=== PATIENT | male | born 1980 | race African-American/Black ===

== ENCOUNTER 2016-12-28 13:05 | Inpatient (IN) | payer OTHER ==
[~2016-12-28] VITALS: Ht 175.3 cm; Wt 76.7 kg
[2016-12-28] VITALS (11 sets, daily range): BP systolic 115–146; BP diastolic 62–89; PULSE 58–72; TEMP 36.3–36.9; O2SAT 100; Ht 175.3 cm; Wt 76.7 kg
--- NOTE | 2016-12-28 13:41 | Gastrointestinal Consultation ---
Gastrointestinal Consultation Date of Consultation: Dec 28, 2016 Attending Physician: Dr. Segovia Consulting Physician: Dr. Holder, Shelbie Hare PA-C Reason for Consultation: Symptomatic anemia, melena, change in bowel habits History of Present Illness Patient is a 36 yo male with PMH of asthma currently incarcerated at [facility] sent for evaluation of rectal bleeding, a large hemorrhoid & anemia. The patient was in good health in September 2016. He had routine labs performed at that time and his hemoglobin was 15.9. He reports that mid-October, he developed right sided abdominal cramping, constipation alternating with diarrhea , and most alarmingly to him was melanotic stool. He reports that prior to this , he had been having 1-2 soft, formed bowel movements daily. He had repeat labs performed again on 11/23/16 that indicated a significant drop in his hemoglobin to 8.4/32.6. He reports that his melena continued since that time. He reports right sided cramping persisted. On 12/03/16, his labs were repeated and his H/H was then 7.2/ 27.9. He reports he has continued to be weak and exhausted. He reports syncope. He reports shortness of breath with minimal exertion. He again reports persistence of melena. He denies nausea or vomiting. He reports a distant history of asthma for which he occasionally takes Ventolin. He reports his grandfather at a young age of colon cancer. He describes his abdominal pain as a sharp, cramping pain. Patient has a large external hemorrhoid as well, but has not been experiencing BRBPR. Past Medical/Surgical History Symptomatic Anemia Melena Change in bowel habits Past Medical History: Asthma Past Surgical History: Tubes in ears Family History Grandfather at young age from colon cancer Social History Smoking Status: Former Smoker Alcohol Use: none Drug Use: none Marital Status: single Housing Status: other (incarcerated) Review of Systems Constitutional: + fatigue, + weakness, + weight loss (5-10 pounds) Eyes: No problem reported Respiratory: + dyspnea on exertion, + shortness of breath Cardiac: + chest pain Abdomen: + GI bleeding (melena), + constipation, + diarrhea, + pain (right sided), No nausea, No vomiting Musculoskeletal: No joint pain Neuro: + problem reported (syncope) Psych: No problem reported Endo: + fatigue Skin: No problem reported Physical Exam General Appearance: WD/WN, no apparent distress Eyes: normal inspection, PERRL ENT: hearing grossly normal Respiratory/Chest: chest non-tender, lungs clear, + pertinent finding Cardiovascular: regular rate, rhythm Abdomen: normal bowel sounds, soft, + tenderness (right sided) Extremities: non-tender Neurologic/Psych: alert, oriented x 3 Skin: normal color Laboratory Results Last 24 Hours Test 12/28/16 13:11 Impression Patient is a 36 year old male with symptomatic profound anemia of 7.2/27.9, several weeks of melena, heme positive stools, and right sided abdominal pain. Possible GI bleeding, however regardless of GI bleeding patient requires further evaluation and treatment of symptomatic anemia. Plan 1) IV Protonix drip initiated. 2) NPO. 3) Obtain stat H/H. Pending result, will determine timing of endoscopic evaluation. If stable, would proceed with EGD this afternoon. If not, would recommend optimization with transfusion prior to any intervention. 4) Given change in bowel habits, right sided lower abdominal pain, and family history of colon cancer, patient will need a colonoscopy as well---timing to be determined. 5) Supportive care per primary team. Thank you for allowing us to participate in the care of this patient. If you should have any further questions or concerns, do not hesitate to contact us. Agree with NANCY Chacon as above Abd: Soft, RLQ abdominal tenderness, ND, +BS EGD today Continue PPI gtt at present
[2016-12-28] MEDS ORDERED: ONDANSETRON INJ 2 MG/ML 2 ML VIAL IV PRN (13:45)
[2016-12-28 13:55] LABS: HEMATOCRIT 27.6 % (42-52); MEAN CELL VOLUME 62.2 fL (80-100); MEAN CORPUSCULAR HEMOGLOBIN 16.7 pg (25-34); MEAN CORPUSCULAR HGB CONC 26.8 g/dl (32-36); RED BLOOD COUNT 4.44 M/uL (4.7-6.1); WHITE BLOOD COUNT 7.26 K/uL (4.8-10.8)
[2016-12-28 13:59] LABS: MEAN PLATELET VOLUME 10.4 fL (7.4-10.4); PLATELET COUNT 1041 K/uL (130-400)
[2016-12-28 14:00] LABS: ANISOCYTOSIS PRESENT; BASO % 2.9 %; BASO ABS # 0.21 K/uL (0-0.2); COMPLETE YES; EOS % 0.7 %; HYPOCHROMIA PRESENT; IG% 0.1 %; LARGE PLATELETS 1+; LYMPH % 24.2 %; LYMPH ABS # 1.76 K/uL (1.2-3.4); MICROCYTOSIS PRESENT; NEUT % 61.1 %; OVALOCYTES 1+; PLT ESTIMATE INCREASED
[2016-12-28] MEDS ORDERED: PATIENT'S ALLERGY INFO NEEDS ENTERED SCH (14:00)
[2016-12-28 14:23] LABS: HEMATOCRIT 26.4 % (42-52)
[2016-12-28] MEDS ORDERED: ALBUT/IPRATROP 3MG/0.5MG NEB 3 ML VIAL INH PRN (14:30)
[2016-12-28 14:35] LABS: ALT/SGPT 22 U/L (12-78); AST/SGOT 19 U/L (15-37); BLOOD UREA NITROGEN 4 mg/dl (7-18); BUN/CREATININE RATIO 4.4 (10-20); CARBON DIOXIDE 28 mmol/L (21-32); CHLORIDE 108 mmol/L (98-107); GLUCOSE 83 mg/dl (70-99); POTASSIUM 3.6 mmol/L (3.5-5.1); SODIUM 142 mmol/L (136-145)
[2016-12-28 14:39] LABS: ALKALINE PHOSPHATASE 52 U/L (45-117)
[2016-12-28 14:40] LABS: INR 1.2 (0.9-1.1); PROTHROMBIN TIME (PATIENT) 12.4 SECONDS (9.0-12.0)
--- NOTE | 2016-12-28 14:41 | History and Physical ---
History & Physical Date & Time of Service: Dec 28, 2016 at 14:26 Chief Complaint: Systematic Anemia Primary Care Physician: Richard Delatorre M.D. History of Present Illness Source: patient, other (GI doc) This patient is a 36-year-old male that is directly admitted to the hospital per his GI doc with complaints of melanotic stools and right upper abdominal pain that he reports has been going on for months. He also occasionally has bright red blood in his stool. His stool varies from diarrhea to normal. He denies any fever or chills. He has had nausea, but denies any vomiting. The patient is currently incarcerated. He denies any EtOH use. He denies any NSAID use. He tries to avoid medications. The patient has been following with Shelbie Hare PA-C from GI. I was able to briefly speak with her. She notes the patient had a hemoglobin of 15 in the office in October. His hemoglobin has now dropped to 7.4. The patient admits to feeling lightheaded upon standing. He also has felt some chest pressure and shortness of breath with exertion. All of his symptoms are better with rest. Past Medical/Surgical History History of asthma Family History Father and grandfather both had diabetes The patient also reports a family history of hypertension. His mother has a known history of COPD and anemia. Both of his parents are living. There is also a reported family history of colon cancer, however the patient did not tell me this. Social History Smoking Status: Former Smoker Alcohol Use: none Drug Use: none Marital Status: single Housing status: other (incarcerated) Allergies Coded Allergies: Chocolate (Verified Allergy, Unknown, ., 12/28/16) Milk (Verified Allergy, Unknown, ., 12/28/16) Uncoded Allergies: MAYONAISSE (Allergy, Unknown, ., 12/28/16) Review of Systems 10 system review performed and negative unless noted in HPI or below Physical Exam Vital Signs Date Time Temp Pulse Resp B/P Pulse Ox O2 Delivery O2 Flow Rate FiO2 12/28/16 13:20 36.9 61 16 117/72 Room Air General Appearance: no apparent distress Head: normocephalic Eyes: EOMI ENT: + pertinent finding (oral mucosa slightly dry) Neck: no JVD Respiratory/Chest: lungs clear Cardiovascular: regular rate, rhythm Abdomen/GI: normal bowel sounds, soft, + pertinent finding (tenderness to palpation in the right upper quadrant) Extremities/Musculoskelatal: no calf tenderness, no pedal edema Neurologic/Psych: no motor/sensory deficits, oriented x 3 Skin: warm/dry Diagnostics Laboratory Results Results Past 24 Hours Test 12/28/16 13:22 12/28/16 13:33 12/28/16 14:04 12/28/16 14:16 Range/Units White Blood Count 7.26 4.8-10.8 K/uL Red Blood Count 4.44 4.7-6.1 M/uL Hemoglobin 7.4 7.3 14.0-18.0 g/dL Hematocrit 27.6 26.4 42-52 % Mean Corpuscular Volume 62.2 80-100 fL Mean Corpuscular Hemoglobin 16.7 25-34 pg Mean Corpuscular Hemoglobin Concent 26.8 32-36 g/dl Platelet Count 1041 130-400 K/uL Mean Platelet Volume 10.4 7.4-10.4 fL Neutrophils (%) (Auto) 61.1 % Lymphocytes (%) (Auto) 24.2 % Monocytes (%) (Auto) 11.0 % Eosinophils (%) (Auto) 0.7 % Basophils (%) (Auto) 2.9 % Neutrophils # (Auto) 4.43 1.4-6.5 K/uL Lymphocytes # (Auto) 1.76 1.2-3.4 K/uL Monocytes # (Auto) 0.80 0.11-0.59 K/uL Eosinophils # (Auto) 0.05 0-0.5 K/uL Basophils # (Auto) 0.21 0-0.2 K/uL RDW Standard Deviation 48.3 36.4-46.3 fL RDW Coefficient of Variation 22.2 11.5-14.5 % Immature Granulocyte % (Auto) 0.1 % Immature Granulocyte # (Auto) 0.01 0.00-0.02 K/uL Platelet Estimate INCREASED Large Platelets 1+ Hypochromasia PRESENT Anisocytosis PRESENT Microcytosis PRESENT Ovalocytes 1+ Impression Assessment and Plan 36-year-old male directly admitted to the hospital with complaints of melanoma, right upper quadrant abdominal pain, weakness, dyspnea on exertion and chest pressure. Found to be profoundly anemic with a hemoglobin of 7.4 from 15.9 in October Anemia with questionable GI bleed in addition to possible iron deficiency -Admit to telemetry -NPO -Begin Protonix drip -GI consult -Plan is for EGD today -Possible colonoscopy this weekend -Check iron studies -check EKG/trop -type and cross, transfuse 2 u p RBCs now -f/u H&H Thrombocytosis-? etiology -heme/onc consult Asthma-stable -duonebs prn DVT prophylaxis -Chemical means contraindicated -TEDS, SCDs CODE STATUS -LEVEL I FULL CODE Level of Care Telemetry Advanced Directives Existing Living Will: No Existing Power of Boatbuilder Supervisor: No Resuscitation Status FULL RESUSCITATION VTE Prophylaxis VTE Risk Assessment Done? Y/N: Yes Risk Level: Low Given or contraindicated: T.E.D. Stockings, SCD's, Contraindicated Reviewed: Pt Seen/Exam by Me History Physician Leasing Property Manager Supervision Note: I interviewed and examined the patient. Discussed with MARII Bobo and agree with findings and plan as documented in the note. Any exceptions or clarifications are listed here: Patient is an incarcerated 36-year-old male here with right upper quadrant pain and intermittent melena with a hemoglobin of 7.2 on labs from 3 weeks ago. He was brought in for urgent evaluation upon seen gastroenterology in the outpatient setting today. His EGD today showed an actively oozing esophageal ulcer. He is currently being transfused with 2 units of packed red blood cells. He was also noted to have a significant thrombocytosis over 1 million. Case was discussed with the grinder mill tender second operator, Dr. Leyva. Vitals reviewed No acute distress, AAO 3, hand and feet shackled to the bed Regular rate and rhythm, no murmurs gallops or rubs, normal S1 and S2 Lungs clear to auscultation bilaterally, breathing unlabored Abdomen soft positive mild tenderness to palpation right upper quadrant without guarding or rebound tenderness, no hepatosplenomegaly, positive bowel sounds Extremities no edema, 2+ dorsalis pedis pulses Skin no rashes 36-year-old male here with severe symptomatic anemia and GI bleed, as well as significant thrombocytosis. He is hemodynamically stable at this time. EGD with oozing esophageal ulcer today. Protonix drip is infusing, transfusing 2 units of packed red blood cells. Gastroenterology consult is greatly appreciated. Consideration for colonoscopy is ongoing. Platelets are over 1 million. This could be a reactive thrombocytosis to severe iron deficiency, however there could also be a component of essential thrombocytosis. Hematology consultation is greatly appreciated as well. Chest pain and shortness of breath with exertion and are likely related to severe anemia. His ECG and troponin here are normal. His oxygen levels are normal. This should resolve with transfusion of PRBCs. Monitor on telemetry. Will also order an echocardiogram to assess for wall motion abnormalities. Documented By: Silva Tolliver
[2016-12-28] MEDS ORDERED: MIDAZOLAM HCL 1 MG/ML 2ML VIAL ONE (14:57)
--- NOTE | 2016-12-28 15:08 | GI REPORT ---
Procedure Date: 12/28/2016 3:00 PM Procedure: Upper GI endoscopy Indications: Acute post hemorrhagic anemia, Melena Medicines: Monitored Anesthesia Care Complications: No immediate complications. Estimated Blood Loss: Estimated blood loss: none. Procedure: Pre-Anesthesia Assessment: - Prior to the procedure, a History and Physical was performed, and patient medications and allergies were reviewed. The patient's tolerance of previous anesthesia was also reviewed. The risks and benefits of the procedure and the sedation options and risks were discussed with the patient. All questions were answered, and informed consent was obtained. Prior Anticoagulants: The patient has taken no previous anticoagulant or antiplatelet agents. ASA Grade Assessment: III - A patient with severe systemic disease. After reviewing the risks and benefits, the patient was deemed in satisfactory condition to undergo the procedure. After obtaining informed consent, the endoscope was passed under direct vision. Throughout the procedure, the patient's blood pressure, pulse, and oxygen saturations were monitored continuously. The scope was introduced through the mouth, and advanced to the second part of duodenum. The upper GI endoscopy was accomplished without difficulty. The patient tolerated the procedure well. Findings: One superficial esophageal ulcer with oozing blood and no stigmata of recent bleeding was found. The lesion was 4 mm in largest dimension. The stomach was normal. The examined duodenum was normal. Impression: - Bleeding esophageal ulcer. - Normal stomach. - Normal examined duodenum. - No specimens collected. Recommendation: - Return patient to [facility] for ongoing care. - Clear liquid diet. - Continue present medications. Jesse Holder DO 12/28/2016 3:08:17 PM This report has been signed electronically. Note Initiated On: 12/28/2016 3:00 PM I attest to the content of the Intraoperative Record and orders documented therein, exceptions below
[2016-12-28] MEDS ORDERED: PROPOFOL IV EMULSION 10 MG/ML 20 ML VIAL IV ONE (15:09)
[2016-12-28] MEDS ORDERED: LIDOCAINE HCL 2% 2 ML VIAL (20MG/ML) ONE (15:09)
[2016-12-28 15:19] LABS: URINE APPEARANCE CLEAR (CLEAR); URINE BILIRUBIN NEG (NEG); URINE COLOR YELLOW; URINE NITRITE NEG (NEG); URINE PH 7.5 (4.5-7.5); URINE SPECIFIC GRAVITY 1.012 (1.000-1.030); UROBILINOGEN NEG (NEG)
[2016-12-28 15:22] LABS: MANUAL MICROSCOPIC REQUIRED? NO; REVIEW REQ? NO
[2016-12-28 15:23] LABS: FERRITIN 1.8 ng/ml (8.0-388.0)
[2016-12-28] MEDS ORDERED: PANTOprazole INJ 80 MG in DEXTROSE 5% 100ML IV SCH (16:15)
--- NOTE | 2016-12-28 16:26 | Anesthesiology Progress Note ---
Anesthesia Post Op Note Date & Time Dec 28, 2016 at 16:26 Vital Signs Pain Intensity: 0 Vital Signs Past 12 Hours Date Time Temp Pulse Resp B/P Pulse Ox O2 Delivery O2 Flow Rate FiO2 12/28/16 15:58 36.3 70 16 131/78 100 Room Air 12/28/16 15:40 64 18 142/79 100 Room Air 12/28/16 15:26 71 18 127/95 100 Room Air 12/28/16 15:11 69 16 115/76 100 Room Air 12/28/16 14:55 36.2 65 16 137/79 100 Room Air 12/28/16 14:00 Room Air 12/28/16 13:20 36.9 61 16 117/72 Room Air Notes Mental Status: alert / awake / arousable, participated in evaluation Pt Amnestic to Procedure: Yes Nausea / Vomiting: adequately controlled Pain: adequately controlled Airway Patency, RR, SpO2: stable & adequate BP & HR: stable & adequate Hydration State: stable & adequate Anesthetic Complications: no major complications apparent
[2016-12-28] MEDS: PANTOprazole INJ 40 MG in DEXTROSE 5% 100ML IV SCH ×2 (16:30→22:09)
[2016-12-28 16:40] LABS: ESTIMATED AVERAGE GLUCOSE 120 mg/dl; HA1C FLAG Normal (Normal)
[2016-12-28] MEDS ORDERED: PANTOprazole INJ 40 MG in SYRINGE 0 ML IV SCH (21:00)
[2016-12-28] MEDS: LAVAGE SOLUTION 4000ML PO SCH ×3 (22:27→22:45)
[2016-12-29] VITALS (7 sets, daily range): BP systolic 114–167; BP diastolic 60–81; PULSE 57–72; TEMP 36.7–37.5; O2SAT 98–100
[2016-12-29] MEDS: LAVAGE SOLUTION 4000ML PO SCH ×6 (00:10→02:12)
[2016-12-29 01:53] LABS: HEMATOCRIT 34.4 % (42-52)
[2016-12-29] MEDS: PANTOprazole INJ 40 MG in DEXTROSE 5% 100ML IV SCH ×2 (03:39→09:23)
[2016-12-29 06:49] LABS: BASO % 1.5 %; BASO ABS # 0.16 K/uL (0-0.2); EOS % 0.8 %; IG% 0.1 %; LYMPH ABS # 1.91 K/uL (1.2-3.4); MEAN CELL VOLUME 66.5 fL (80-100); MEAN CORPUSCULAR HEMOGLOBIN 19.8 pg (25-34); MEAN CORPUSCULAR HGB CONC 29.7 g/dl (32-36); MONO % 8.5 %; NEUT % 71.1 %; PLATELET COUNT 942 K/uL (130-400); RED BLOOD COUNT 4.81 M/uL (4.7-6.1); WHITE BLOOD COUNT 10.61 K/uL (4.8-10.8)
[2016-12-29 07:20] LABS: ANISOCYTOSIS PRESENT; COMPLETE YES; HYPOCHROMIA PRESENT; LARGE PLATELETS 2+; MICROCYTOSIS PRESENT; OVALOCYTES 1+
[2016-12-29] MEDS ORDERED: KETAMINE HCL INJ 50 MG/ML 10 ML VIAL ONE (07:23)
[2016-12-29 07:28] LABS: BUN/CREATININE RATIO 4.1 (10-20); CALCIUM 9.1 mg/dl (8.5-10.1); POTASSIUM 3.9 mmol/L (3.5-5.1)
--- NOTE | 2016-12-29 07:31 | History & Physical Bridge Note ---
H&P Re-Evaluation Bridge Note: I have examined the patient, reviewed the History & Physical and in the interval since the performance of the History & Physical I have noted the following changes of clinical significance: No changes noted. Colonoscopy requested by due to melena without etiology. Risks discussed to include bleeding, infection, perforation, pain, and need for follow-up studies.
--- NOTE | 2016-12-29 08:11 | [facility] Post Operative Brief Note ---
Immediate Operative Summary Operative Date Dec 29, 2016. Pre-Operative Diagnosis Melana Post-Operative Diagnosis Internal and external hemorrhoids Procedure(s) Performed Colonoscopy Surgeon Dr. Doug Zuluaga Vending Machine Host/Hostess Surgeon(s) nONE Estimated Blood Loss None Findings Normal colon and Terminal ileum Large hemorrhoids Specimens none Anesthesia General Complication(s) None Disposition Recovery Room / PACU
--- NOTE | 2016-12-29 08:25 | GI REPORT ---
Procedure Date: 12/29/2016 7:10 AM Procedure: Colonoscopy Indications: Hematochezia, Melena Medicines: Monitored Anesthesia Care Complications: No immediate complications. Estimated blood loss: Minimal. Estimated Blood Loss: Estimated blood loss was minimal. Procedure: Pre-Anesthesia Assessment: - Prior to the procedure, a History and Physical was performed, and patient medications, allergies and sensitivities were reviewed. The patient's tolerance of previous anesthesia was reviewed. - The risks and benefits of the procedure and the sedation options and risks were discussed with the patient. All questions were answered and informed consent was obtained. - Patient identification and proposed procedure were verified prior to the procedure by the physician, the nurse and the gate agent. The procedure was verified in the procedure room. - Pre-procedure physical examination revealed no contraindications to sedation. - ASA Grade Assessment: II - A patient with mild systemic disease. - After reviewing the risks and benefits, the patient was deemed in satisfactory condition to undergo the procedure. - The anesthesia plan was to use monitored anesthesia care (MAC). - Immediately prior to administration of medications, the patient was re-assessed for adequacy to receive sedatives. - The heart rate, respiratory rate, oxygen saturations, blood pressure, adequacy of pulmonary ventilation, and response to care were monitored throughout the procedure. - The physical status of the patient was re-assessed after the procedure. After I obtained informed consent, the scope was passed under direct vision. Throughout the procedure, the patient's blood pressure, pulse, and oxygen saturations were monitored continuously. The Scope was introduced through the anus and advanced to the terminal ileum. The colonoscopy was performed without difficulty. The patient tolerated the procedure well. The quality of the bowel preparation was good. Findings: The digital rectal exam findings include non-thrombosed external hemorrhoids. Pertinent negatives include normal sphincter tone. The terminal ileum appeared normal. Internal hemorrhoids were found during retroflexion. The hemorrhoids were severe. The exam was otherwise without abnormality. Impression: - Non-thrombosed external hemorrhoids found on digital rectal exam. - The examined portion of the ileum was normal. - Internal hemorrhoids. - The examination was otherwise normal. Recommendation: - Return patient to hospital [facility] for ongoing care. - Advance diet as tolerated today. - Consider a surgery evalaution if hematochezia persists Doug Zuluaga D.O. Doug Zuluaga DO 12/29/2016 8:24:57 AM This report has been signed electronically. Note Initiated On: 12/29/2016 7:10 AM I attest to the content of the Intraoperative Record and orders documented therein, exceptions below
[2016-12-29] MEDS ORDERED: FENTANYL CITRATE INJ 50 MCG/1 ML 2 ML VIAL IV PRN (08:30)
[2016-12-29] MEDS ORDERED: EpHEDrine SULFATE INJ 50 MG/ML AMP IV PRN ×2 (08:30→09:30)
[2016-12-29] MEDS ORDERED: PROMETHAZINE HCL INJ 6.25 MG in SODIUM CHLORIDE 0.9% 50ML 50 ML IV PRN (08:30)
[2016-12-29] MEDS ORDERED: ATROPINE SULFATE 0.1 MG/ML 5ML SYR IV PRN (08:30)
[2016-12-29] MEDS ORDERED: ONDANSETRON INJ 2 MG/ML 2 ML VIAL IV PRN ×2 (08:30→09:30)
[2016-12-29] MEDS ORDERED: LIDOCAINE HCL 2% 2 ML VIAL (20MG/ML) ONE (08:47)
[2016-12-29] MEDS ORDERED: PROPOFOL IV EMULSION 10 MG/ML 20 ML VIAL IV ONE ×2 (08:47)
[2016-12-29] MEDS ORDERED: LACTATED RINGER'S 1000ML 500 ML IV PRN (09:20)
[2016-12-29] MEDS ORDERED: NALOXONE HCL INJ 0.08 MG in SYRINGE 1.8 ML IV PRN (09:20)
[2016-12-29] MEDS ORDERED: SODIUM CHLORIDE 0.9% 1000ML 1,000 ML IV PRN (09:20)
[2016-12-29] MEDS ORDERED: NALOXONE HCL INJ 1 MG in SODIUM CHLORIDE 0.9% 1000ML 1,000 ML IV PRN (09:20)
[2016-12-29] MEDS ORDERED: NALOXONE HCL 0.4 MG/1 ML VIAL/CARP IV PRN (09:30)
[2016-12-29] MEDS ORDERED: DC INTRASPINAL MORPHINE SCH (09:30)
[2016-12-29] MEDS ORDERED: MoRPHine SULFATE 2 MG/ML CARP IV PRN (09:30)
[2016-12-29] MEDS ORDERED: DiphenhydrAMINE HCL 50 MG/ML VIAL IV PRN (09:30)
[2016-12-29] MEDS ORDERED: NO NARCOTICS OR SEDATIVES SCH (09:30)
[2016-12-29] MEDS ORDERED: KETOROLAC TROMETHAMINE 30 MG/ML VIAL IV. PRN (09:30)
[2016-12-29] MEDS ORDERED: NALBUPHINE HCL INJ 10 MG/ML AMP IV PRN (09:30)
[2016-12-29] MEDS ORDERED: MoRPHine SULFATE PF 1 MG/ML 10 ML AMP/VIAL EPI PRN (09:30)
[2016-12-29] MEDS ORDERED: IRON SUCROSE INJ 100 MG in SODIUM CHLORIDE 0.9% 100ML 100 ML IV SCH (10:00)
[2016-12-29] MEDS: HYDROCORTISONE HC 2.5% CRM 30GM TUBE EXT SCH ×3 (11:01→23:42)
[2016-12-29] MEDS: HYDROCORTISONE ACETATE 25 MG SUPP PR SCH ×3 (11:02→23:43)
[2016-12-29] MEDS ORDERED: NURSING VERBAL MED ORDER ONE (13:45)
--- NOTE | 2016-12-29 14:23 | ONCOLOGY CONSULTATION ---
DATE OF CONSULTATION: 12/29/2016 DATE OF CONSULTATION: 12/29/2016. REASON FOR CONSULTATION: Microcytic anemia. HISTORY OF PRESENT ILLNESS: Adalgisa is a pleasant 36-year-old -Greek male currently incarcerated at [facility] sent to [facility] with rectal bleeding, persistent anemia and enlarged hemorrhoids. The patient has been battling with right-sided abdominal cramping, constipation alternating with diarrhea and melanotic stools. His normal bowel habits consist of 1-2 soft formed bowel movements daily. He had repeated blood counts performed in late October revealing a significant drop in hemoglobin to 8.4 and 32.6 respectively. He reports melena has continued since that time. He was evaluated by gastroenterology and underwent both EGD and colonoscopy. EGD revealed a small nonbleeding ulcer while colonoscopy confirmed the presence of nonthrombosed external hemorrhoids and enlarged internal hemorrhoids. Preliminary blood work confirms the presence of severe iron deficient state with ferritin of 1.5 and serum iron in single digits. The patient was given 2 unit packed RBCs as well as initial dose of iron sucrose 100 mg intravenously. PAST MEDICAL HISTORY: Again, significant for persistent anemia, melena and he suffers from asthma. PAST SURGICAL HISTORY: Includes myringotomy. SOCIAL HISTORY: The patient is a reformed smoker. He is currently incarcerated at [facility]. He is single. Negative for alcohol or illicit drugs. FAMILY HISTORY: She states grandfather at young age from colon cancer, also reports mother suffers from an unspecified anemia. REVIEW OF SYSTEMS: GENERAL: Positive for generalized weakness, fatigue and weight loss about 5-10 pounds. His appetite is at baseline. No fevers, chills or sweats otherwise. HEAD, EYES, EARS, NOSE, AND THROAT: Denies headaches. He has been a bit lightheaded, no dizziness or headaches reported. No visual or hearing deficits. No sinus symptoms, sore throat or dysphagia. LYMPHADENOPATHY: No history of lymphoproliferative disease. PULMONARY: Negative for COPD. Positive for dyspnea on exertion and shortness of breath. No cough or hemoptysis. CARDIAC: Negative for angina or palpitations. No history of coronary artery disease. GASTROINTESTINAL: As per HPI. MUSCULOSKELETAL: No arthralgias or myalgias. No muscle weakness. ENDOCRINE: Negative for diabetes or thyroid disease. PSYCHIATRIC: Negative for anxiety, depression or psychoses. NEUROLOGIC: Negative for seizure, stroke, or migraine headache, but reports a syncopal episode prior to admission. HEMATOLOGIC: Persistent microcytic anemia with confirmatory iron deficiency state. PHYSICAL EXAMINATION: GENERAL: Very pleasant 36-year-old -Greek male in no acute distress. VITAL SIGNS: Temperature 37, pulse 69, respirations 18, blood pressure 166/81. SKIN: Without rash or lesion. No petechiae or ecchymosis. Turgor is fair. HEAD: Atraumatic, normocephalic. EYES: PERRLA, EOMI. Sclerae nonicteric. No conjunctival injection. Nares are patent without rhinorrhea or discharge. Throat is clear. Tongue is midline. Mucous membranes are moist. NECK: Supple without JVD or thyromegaly. LYMPH: No cervical, supraclavicular, axillary or inguinal palpable nodes. HEART: Regular rate and rhythm. No clicks, rubs, murmurs, gallops. LUNGS: Clear to auscultation bilaterally. ABDOMEN: Soft, nontender, nondistended, without palpable hepatosplenomegaly. EXTREMITIES: No calf tenderness or swelling. No clubbing, cyanosis or edema. NEUROLOGIC EXAMINATION: Awake, alert and oriented x3. Cranial nerves II-XII are intact. No gross motor or sensory deficits noted. LABORATORY DATA: Serum sodium 143, potassium 3.9, chloride 108, carbon dioxide 29, BUN 4, creatinine 1. WBC count 10,600, hemoglobin 9.5, platelet count 942,000. Serum ferritin 1.8. Serum iron 7, TIBC 408. B12 and folate are within normal limits. ASSESSMENT AND PLAN: 1. Lower gastrointestinal bleeding, suspected hemorrhoidal bleeding. 2. Iron deficiency anemia. 3. Reactive thrombocytosis. PLAN: I had the pleasure of visiting with Adalgisa at bedside today. He imparts pretty longstanding history of persistent rectal bleeding and perirectal pain especially on defecation, but he reports pain even at normal steady state. Clearly his iron studies indicate iron deficiency. I have taken the liberty of starting iron sucrose 100 mg IV every day, and will continue during his hospital stay. Perhaps a general surgery consult for hemorrhoidectomy is appropriate. Agree with transfusional support and medical management otherwise. His platelet count should retreat towards normal as his iron stores are repleted. I will continue to follow periodically during his hospital stay. If you have any questions or concerns regarding these recommendations feel free to contact me at any time. MTDD
--- NOTE | 2016-12-29 17:50 | ECHOCARDIOGRAM REPORT ---
*NOTICE TO RECEIVING DEMOCRAT AGENCY This information is strictly Confidential and protected under [place] law. [place] law prohibits you from making any further disclosure of this information unless further disclosure is expressly permitted by the written consent of the person to whom it pertains or is authorized by law. A general authorization for the release of medical or other information is not sufficient for this purpose. Hospital accepts no responsibility if the information is made available to any other person, INCLUDING THE PATIENT. Interpretation Summary * Name: JERROD SHERWOOD [id number] Study Date: 12/29/2016 09:34 AM BP: 114/69 mmHg * Patient Location: C.2T\S\S234\S\1 HR: 57 * : 1980 (M/d/yyyy) Gender: Male Height: 69 in * Age: 36 yrs Ethnicity: AA Weight: 169 lb * Ordering Physician: Silva Tolliver * Referring Physician: Shelbie Hare * Performed By: Анна Laura * * Reason For Study: CHEST PAIN * BSA: 1.9 m2 * -- Conclusions -- * 1. Normal left ventricular size and systolic function. EF 60-65%. No regional wall motion abnormalities. No left ventricular hypertrophy. No significant diastolic dysfunction. * 2. No significant valvular abnormalities visualized. * 3. Normal estimated right ventricular systolic pressure; 32 mmHg. * 4. No prior study available for comparison. Procedure Details * A complete two-dimensional transthoracic echocardiogram was performed (2D, M-mode, Doppler and color flow Doppler). Left Ventricle * Normal left ventricular size and systolic function. EF 60-65%. No regional wall motion abnormalities. No left ventricular hypertrophy. No significant diastolic dysfunction. Right Ventricle * The right ventricle is normal in size and function. * The right ventricular systolic function is normal as assessed by tricuspid annular plane systolic excursion (TAPSE) (normal >1.5 cm). Atria * Borderline left atrial enlargement. * Right atrial size is normal. * There is no evidence of atrial septal defect, but resolution does not allow assessment for a patent foramen ovale. Mitral Valve * The mitral valve is normal in structure and function. * There is no mitral valve stenosis. * There is trace mitral regurgitation. Tricuspid Valve * The tricuspid valve is not well visualized, but is grossly normal. * There is no tricuspid stenosis. * There is trace tricuspid regurgitation. Aortic Valve * The aortic valve is normal in structure and function. * No hemodynamically significant valvular aortic stenosis. * Trace aortic regurgitation. Pulmonic Valve * The pulmonary valve is inadequately visualized, but the Doppler data is adequate for interpretation. * There is no pulmonic valvular stenosis. * There is no significant pulmonary regurgitation. Great Vessels * The aortic root is normal size. * Normal pulmonary venous flow pattern. Pericardium/Pleural * There is no pericardial effusion. Great Vessels * Mildly dilated IVC. Inspiratory collapse not well seen. MMode 2D Measurements and Calculations IVSd 1.1 cm IVSs 1.7 cm LVIDd 4.4 cm LVIDs 2.5 cm LVPWd 1.1 cm LVPWs 1.8 cm IVS/LVPW 0.98 FS 43.7 % EDV(Teich) 88.8 ml ESV(Teich) 22.1 ml EF(Teich) 75.1 % EDV(cubed) 86.6 ml ESV(cubed) 15.4 ml EF(cubed) 82.2 % % IVS thick 58.3 % % LVPW thick 58.1 % LV mass(C)d 172.3 grams LV mass(C)dI 89.6 grams/m\S\2 LV mass(C)s 167.2 grams LV mass(C)sI 86.9 grams/m\S\2 SV(Teich) 66.7 ml SI(Teich) 34.7 ml/m\S\2 SV(cubed) 71.2 ml SI(cubed) 37.0 ml/m\S\2 Ao root diam 3.0 cm Ao root area 6.9 cm\S\2 ACS 1.9 cm LA dimension 3.4 cm LA/Ao 1.2 LVOT diam 2.2 cm LVOT area 3.6 cm\S\2 LVAd ap4 32.0 cm\S\2 LVLd ap4 8.4 cm EDV(MOD-sp4) 100.8 ml EDV(sp4-el) 103.7 ml LVAs ap4 17.7 cm\S\2 LVLs ap4 6.7 cm ESV(MOD-sp4) 38.4 ml ESV(sp4-el) 39.7 ml EF(MOD-sp4) 61.9 % EF(sp4-el) 61.7 % LVAd ap2 31.1 cm\S\2 LVLd ap2 8.1 cm EDV(MOD-sp2) 97.1 ml EDV(sp2-el) 102.4 ml LVAs ap2 16.4 cm\S\2 LVLs ap2 6.2 cm ESV(MOD-sp2) 36.1 ml ESV(sp2-el) 37.3 ml EF(MOD-sp2) 62.8 % EF(sp2-el) 63.6 % LVLd %diff -2.69 % EDV(MOD-bp) 103.3 ml LVLs %diff -8.31 % ESV(MOD-bp) 37.0 ml EF(MOD-bp) 64.2 % SV(MOD-sp4) 62.3 ml SI(MOD-sp4) 32.4 ml/m\S\2 SV(MOD-sp2) 61.0 ml SI(MOD-sp2) 31.7 ml/m\S\2 SV(MOD-bp) 66.3 ml SI(MOD-bp) 34.5 ml/m\S\2 SV(sp4-el) 63.9 ml SI(sp4-el) 33.2 ml/m\S\2 SV(sp2-el) 65.1 ml SI(sp2-el) 33.8 ml/m\S\2 Doppler Measurements and Calculations MV E max jacki 126.2 cm/sec MV A max jacki 76.0 cm/sec MV E/A 1.7 MV dec time 0.15 sec Ao V2 max 150.7 cm/sec Ao max PG 9.1 mmHg Ao max PG (full) 5.7 mmHg GABRIELE(V,A) 2.2 cm\S\2 GABRIELE(V,D) 2.2 cm\S\2 LV V1 max PG 3.4 mmHg LV V1 max 91.9 cm/sec MR max jacki 420.0 cm/sec MR max PG 70.5 mmHg PA V2 max 85.2 cm/sec PA max PG 2.9 mmHg TR max jacki 247.2 cm/sec RVSP(TR) 32.4 mmHg RAP systole 8.0 mmHg
[2016-12-29] MEDS: LIDOCAINE HCL 5% OINT 30 GM TUBE EXT SCH ×2 (18:05→23:41)
[2016-12-29] MEDS: PANTOprazole SOD 40 MG TAB PO SCH (20:33)
--- NOTE | 2016-12-29 22:03 | Progress Note ---
Subjective Date of Service: Dec 29, 2016. Subjective Pt evaluation today including: conversation w/ patient, physical exam, chart review, lab review, review of studies (colonoscopy), conversation w/ outreach consultant (general surgery), review of inpatient medication list Pain: rectal pain due to hemorrhoids PO Intake: tolerating clears Voiding: no voiding problems tele normal overnight reports h/o constipation over the last couple of years firm, hard stool with associated straining stools were dark melena "with clots" denies h/o bright red bleeding per rectum reports craving ice and restless legs at HS Review of Systems Constitutional: No fever Respiratory: No dyspnea on exertion, No shortness of breath Cardiac: No chest pain Abdomen: + see HPI, No pain Objective Vital Signs Date Time Temp Pulse Resp B/P Pulse Ox O2 Delivery O2 Flow Rate FiO2 12/29/16 19:02 37.2 66 18 117/60 98 Room Air 12/29/16 18:21 37.5 72 20 98 4.0 12/29/16 16:00 Room Air 12/29/16 15:55 37.5 72 20 123/68 98 Room Air 12/29/16 12:00 Room Air 12/29/16 12:00 37.0 69 18 166/81 100 Room Air 12/29/16 09:00 36.7 60 18 167/80 100 Room Air 12/29/16 08:40 60 16 120/86 100 Room Air 12/29/16 08:30 36.3 69 16 129/80 100 Room Air 12/29/16 08:25 60 15 124/79 100 Room Air 12/29/16 08:15 67 17 130/97 100 Nasal Cannula 12/29/16 08:08 36.4 67 16 121/81 100 Nasal Cannula 4 12/29/16 07:15 Room Air 12/29/16 06:53 36.7 57 18 114/69 100 Room Air 12/29/16 04:37 36.7 57 18 114/69 100 Room Air 12/29/16 04:00 Room Air 12/28/16 23:59 Room Air 12/28/16 23:46 36.5 65 18 118/74 100 Room Air 12/28/16 22:30 36.8 58 14 133/86 100 Physical Exam General Appearance: no apparent distress ENT: pharynx normal Neck: no JVD Respiratory/Chest: lungs clear, no respiratory distress, no accessory muscle use Cardiovascular: regular rate, rhythm, no gallop, no murmur Abdomen: normal bowel sounds, non tender, soft, no organomegaly Extremities: no pedal edema Neurologic/Psychiatric: alert, oriented x 3 Laboratory Results Last 24 Hours Test 12/29/16 01:25 12/29/16 06:23 Hemoglobin 10.0 g/dL 9.5 g/dL Hematocrit 34.4 % 32.0 % Vitamin B12 Level 442 pg/mL Folate 18.84 ng/mL White Blood Count 10.61 K/uL Red Blood Count 4.81 M/uL Mean Corpuscular Volume 66.5 fL Mean Corpuscular Hemoglobin 19.8 pg Mean Corpuscular Hemoglobin Concent 29.7 g/dl Platelet Count 942 K/uL Mean Platelet Volume 11.0 fL Neutrophils (%) (Auto) 71.1 % Lymphocytes (%) (Auto) 18.0 % Monocytes (%) (Auto) 8.5 % Eosinophils (%) (Auto) 0.8 % Basophils (%) (Auto) 1.5 % Neutrophils # (Auto) 7.54 K/uL Lymphocytes # (Auto) 1.91 K/uL Monocytes # (Auto) 0.90 K/uL Eosinophils # (Auto) 0.09 K/uL Basophils # (Auto) 0.16 K/uL RDW Standard Deviation 58.7 fL RDW Coefficient of Variation 24.9 % Immature Granulocyte % (Auto) 0.1 % Immature Granulocyte # (Auto) 0.01 K/uL Large Platelets 2+ Hypochromasia PRESENT Anisocytosis PRESENT Microcytosis PRESENT Ovalocytes 1+ Sodium Level 143 mmol/L Potassium Level 3.9 mmol/L Chloride Level 108 mmol/L Carbon Dioxide Level 29 mmol/L Anion Gap 6.0 mmol/L Blood Urea Nitrogen 4 mg/dl Creatinine 1.00 mg/dl Est Creatinine Clear Calc Drug Dose 102.2 ml/min Estimated GFR () 111.7 Estimated GFR (Non- 96.4 BUN/Creatinine Ratio 4.1 Random Glucose 89 mg/dl Calcium Level 9.1 mg/dl Assessment and Plan 36yo male: 1. chronic blood loss anemia - 2nd to esophageal ulcer +/- hemorrhoids ( although he did not report BRBPR). s/p PRBCs this admission w/ improved H/H. 2. severe iron def anemia - appreciate heme/onc consultation. They will arrange IV iron replacement. 3. severe hemorrhoids - anusol suppos q6h, anusol cream q6h, and xylocaine jelly q6h. Gen surg consultation - ?surgical management? 4. dyspnea - 2nd to severe anemia. Resolved. 5. esophageal ulcer - d/c PPI drip, change to protonix 40mg PO BID. 6. FEN - advance diet as tolerated; BMP normal. 7. DVT proph - SCDs only at this time. 8. asthma - stable, no symptoms. 9. thrombocytosis - 2nd to #2 - should improved with repletion of low iron stores. 10. restless legs - 2nd to iron def - replete Fe, consider mirapex if desired by patient. Discharge planning: other (custodial)
[2016-12-29] MEDS: ACETAMINOPHEN 325 MG TAB PO PRN (23:41)
[2016-12-30] VITALS: O2SAT 98
[2016-12-30 00:11] VITALS: BP 124/73; PULSE 60; TEMP 37.2; O2SAT 99
[2016-12-30] MEDS: HYDROCORTISONE ACETATE 25 MG SUPP PR SCH ×5 (05:40→23:37)
[2016-12-30] MEDS: HYDROCORTISONE HC 2.5% CRM 30GM TUBE EXT SCH ×5 (05:41→23:36)
[2016-12-30] MEDS: LIDOCAINE HCL 5% OINT 30 GM TUBE EXT SCH ×5 (05:41→23:37)
[2016-12-30 07:33] LABS: BASO % 1.8 %; BASO ABS # 0.19 K/uL (0-0.2); HEMATOCRIT 30.5 % (42-52); IG% 0.2 %; LYMPH % 20.3 %; LYMPH ABS # 2.11 K/uL (1.2-3.4); MEAN CELL VOLUME 65.6 fL (80-100); MEAN CORPUSCULAR HEMOGLOBIN 19.1 pg (25-34); MEAN CORPUSCULAR HGB CONC 29.2 g/dl (32-36); MEAN PLATELET VOLUME 10.7 fL (7.4-10.4); MONO % 9.8 %; NEUT % 66.9 %; PLATELET COUNT 922 K/uL (130-400); RED BLOOD COUNT 4.65 M/uL (4.7-6.1); WHITE BLOOD COUNT 10.39 K/uL (4.8-10.8)
[2016-12-30 08:01] VITALS: BP 118/74; PULSE 61; TEMP 36.6; O2SAT 100
[2016-12-30] MEDS: PANTOprazole SOD 40 MG TAB PO SCH ×2 (08:08→19:43)
[2016-12-30] MEDS: ACETAMINOPHEN 325 MG TAB PO PRN ×3 (08:10→19:43)
[2016-12-30 08:27] LABS: ANISOCYTOSIS PRESENT; COMPLETE YES; GIANT PLATELETS 1+; MICROCYTOSIS PRESENT; OVALOCYTES 1+
--- NOTE | 2016-12-30 09:01 | Gastroenterology Progress Note ---
Progress Note Date of Service: Dec 30, 2016 Subjective Pt evaluation today including: conversation w/ patient, physical exam The patient underwent a colonoscopy yesterday. Findings notable for large internal Hemorrhoids. The ileum and remainder of the colon were within normal limits. There was no evidence of active bleeding within the colon or small intestine. The patient does note having she needed black-like stools without stickiness. Review of Systems Constitutional: No fatigue, No fever, No weight loss Respiratory: No cough, No dyspnea at rest, No wheezing Cardiac: No PND, No chest pain, No palpitations Abdomen: + acolic stools, No constipation, No pain Medications Current Inpatient Medications Medications (Trade) Dose Ordered Sig/Delmy Route Start Time Stop Time Status Last Admin Dose Admin Acetaminophen (Tylenol Tab) 650 mg Q4H PRN PO 12/28/16 13:45 01/27/17 13:44 12/30/16 08:10 650 MG Ondansetron HCl (Zofran Inj) 4 mg Q6H PRN IV 12/28/16 13:45 01/27/17 13:44 Albuterol/ Ipratropium (Duoneb) 3 ml Q4 PRN INH 12/28/16 14:30 01/27/17 14:29 Hydrocortisone Acetate (Anusol Hc Supp) 25 mg Q6H ND 12/29/16 12:00 01/28/17 11:59 12/30/16 05:40 25 MG Hydrocortisone (Proctozone Hc 2.5% Crm) 1 appln Q6H EXT 12/29/16 11:00 01/28/17 10:59 12/30/16 05:41 1 APPLN Pantoprazole Sodium 40 mg 40 mg BID PO 12/29/16 20:00 01/28/17 20:59 12/30/16 08:08 40 MG Iron Sucrose/ Sodium Chloride (Venofer Inj/Nss 100ml) 105 ml @ 420 mls/hr DAILY@1000 IV 12/30/16 10:00 01/03/17 10:14 Lidocaine HCl (Xylocaine Oint 5%) 1 appln Q6 EXT 12/29/16 18:00 01/28/17 17:59 12/30/16 05:41 1 APPLN Objective Vital Signs Date Time Temp Pulse Resp B/P Pulse Ox O2 Delivery O2 Flow Rate FiO2 12/30/16 08:01 36.6 61 18 118/74 100 Room Air 12/30/16 08:00 Room Air 12/30/16 00:11 37.2 60 18 124/73 99 Room Air 12/30/16 00:00 98 Room Air 12/29/16 19:02 37.2 66 18 117/60 98 Room Air 12/29/16 18:21 37.5 72 20 98 4.0 12/29/16 16:00 Room Air 12/29/16 15:55 37.5 72 20 123/68 98 Room Air 12/29/16 12:00 Room Air 12/29/16 12:00 37.0 69 18 166/81 100 Room Air 12/29/16 09:00 36.7 60 18 167/80 100 Room Air Physical Exam General Appearance: no apparent distress Neck: no JVD Respiratory/Chest: lungs clear Cardiovascular: regular rate, rhythm, no edema, no JVD Abdomen: soft Neurologic/Psych: oriented x 3 Skin: no jaundice Laboratory Results Last 24 Hours Test 12/30/16 06:38 White Blood Count 10.39 K/uL Red Blood Count 4.65 M/uL Hemoglobin 8.9 g/dL Hematocrit 30.5 % Mean Corpuscular Volume 65.6 fL Mean Corpuscular Hemoglobin 19.1 pg Mean Corpuscular Hemoglobin Concent 29.2 g/dl Platelet Count 922 K/uL Mean Platelet Volume 10.7 fL Neutrophils (%) (Auto) 66.9 % Lymphocytes (%) (Auto) 20.3 % Monocytes (%) (Auto) 9.8 % Eosinophils (%) (Auto) 1.0 % Basophils (%) (Auto) 1.8 % Neutrophils # (Auto) 6.95 K/uL Lymphocytes # (Auto) 2.11 K/uL Monocytes # (Auto) 1.02 K/uL Eosinophils # (Auto) 0.10 K/uL Basophils # (Auto) 0.19 K/uL RDW Standard Deviation 57.2 fL RDW Coefficient of Variation 25.0 % Immature Granulocyte % (Auto) 0.2 % Immature Granulocyte # (Auto) 0.02 K/uL Nucleated RBC Absolute Count (auto) 0.02 K/uL Nucleated Red Blood Cells % 0.2 % Giant Platelets 1+ Anisocytosis PRESENT Microcytosis PRESENT Ovalocytes 1+ Assessment and Plan Patient presented with iron deficiency anemia and a question of gastrointestinal bleeding. His upper endoscopy showed a small esophageal ulcer which Dr. Holder felt was an unlikely cause of his symptoms. His colonoscopy was notable for large internal and external hemorrhoids with evidence of recent bleeding. I wonder if this is the cause of the patient's symptoms. Given his persistent complaints I would suggest further evaluation with a CT of the abdomen. If this is normal and his symptoms persist perhaps a wireless capsule endoscopy could be entertained by his regular GI provider Recommendations Consider CT of the abdomen to evaluate for small bowel masses Further recommendations per on Saturday Celiac serologies
[2016-12-30] MEDS: IRON SUCROSE INJ 100 MG in SODIUM CHLORIDE 0.9% 100ML 100 ML IV SCH (09:52)
--- NOTE | 2016-12-30 11:30 | CONSULTATION REPORT ---
DATE OF CONSULTATION: 12/30/2016 REASON FOR CONSULTATION: Seen in consultation at the request of Dr. Segovia for hemorrhoids. SUMMARY: This is a 36-year-old male who was admitted complain melanotic stool, but he also stated that occasionally he had bright red blood per rectum, this has been going on for some time. He said he has had a longstanding history of hemorrhoids. He was evaluated here and when he came in, he had a hemoglobin of 7.4 and underwent an EGD that looked like an esophageal ulceration with some oozing. He underwent colonoscopy which was negative except internal hemorrhoids, there apparently were prominent and we were asked to see and comment on this particular issue regarding a therapy. The patient on admission, his hemoglobin was 7.4, but his heart rate is only 61 and his blood pressure was 117/72. The patient's platelet count at that time also was 1041. Since his admission, the patient has received 2 units of blood and his last hemoglobin was stabilized about 9. He denies any further bleeding at this time. On examination, focusing on the rectal area, the patient has very little prolapsed hemorrhoid at this time, there is no evidence of any acute thrombosis I did not do a digital exam but the patient just spreading his cheeks and was complaining of significant pain. At this point, given this is a longstanding history of hemorrhoids that he has had and I am not 100% sure that he has had the bleeding foci is typically of hemorrhoids since he does have occasional bright red bleeding but a lot of time just melanotic, could be related to an upper GI source as outlined by EGD. Having said that, I think at this time, it is appropriate to discharge the patient, we will follow up in our office in the future, reevaluate his platelet counts making sure that has normalized and at that time consider possibility of hemorrhoidectomy and in the meantime, give given a chance for heal his esophageal ulcer. I did stress to the patient the importance of keeping a soft diet, I am not sure how much control he has on the institution regarding that, but certainly may be supplemented with some stool softener if need be. In summary, at this time, I do not see the need to jiménez into a hemorrhoidectomy having found that its course could be multifocal and given the current clinical situation would be best for the patient to wait for any elective surgery. Can follow up in office few weeks may be able to anoscope him and may be able to rubber band ligate int hemorrhoid group. MTDD
--- NOTE | 2016-12-30 11:50 | DIAGNOSTIC IMAGING REPORT ---
CT ABD/PELVIS IV AND ORAL CONT CLINICAL HISTORY: Gastrointestinal hemorrhage. Possible small bowel mass. COMPARISON STUDY: None. TECHNIQUE: Following the IV administration of 93 mL of Optiray-320, CT scan of the abdomen and pelvis was performed from the lung bases to the proximal femurs. Images are reviewed in the axial, sagittal, and coronal planes. IV contrast was administered without complication. CT DOSE: 532.78 mGy.cm FINDINGS: Lower chest: The heart is normal in size and configuration, without pericardial effusion. The lung bases and pleural spaces are clear. Liver: The contrast-enhanced liver is normal in size, contour, and attenuation. There is no intrahepatic biliary ductal dilatation. The hepatic veins and portal veins are patent. Gallbladder: Unremarkable. Spleen: Normal in size and attenuation. Pancreas: Unremarkable. Adrenal glands: Unremarkable. Kidneys: There is symmetric renal cortical enhancement. The kidneys are normal in size without hydronephrosis. Bowel: There are no transition zones indicate bowel obstruction. The appendix appears normal. There is no acute diverticulitis. There is no pathologic small bowel or colonic wall thickening. Gastric wall thickening is likely secondary to a nondistended stomach. No bowel masses are visualized. Peritoneum: There is no intraperitoneal free air or abdominal ascites. Vasculature: The abdominal aorta is normal in course and caliber. Adenopathy: None. Pelvic viscera: The bladder, and pelvic viscera are unremarkable. Skeletal structures: There is a 28 mm sclerotic lesion within the right medial iliac bone. This has a nonaggressive appearance. IMPRESSION: 1. No evidence of bowel obstruction. No evidence of free air 2. Normal appendix 3. No acute inflammatory changes 4. No bowel masses identified 5. 28 mm sclerotic lesion within the right medial iliac bone, having a nonaggressive appearance Electronically signed by: Tarun Mccracken M.D. 12/30/2016 11:49 AM Dictated Date/Time: 12/30/2016 11:43 AM
--- NOTE | 2016-12-30 14:51 | HEME/ONC PROGRESS NOTE ---
DATE: 12/30/2016 DIAGNOSES: 1. Gastrointestinal bleeding. 2. Microcytic anemia. HOSPITAL COURSE: Adalgisa is a 36-year-old -[place] gentleman, currently incarcerated at [facility], admitted to [facility] with persistent rectal bleeding and associated anemia. He was seen by general surgery yesterday, recommended possible hemorrhoidectomy as outpatient. I had recommended intravenous iron sucrose, which he has received along with the transfusional support. Clinically, he continues to have a fair amount of perirectal discomfort and fatigue. Nursing reports no issues otherwise. PHYSICAL EXAMINATION: GENERAL: He is in no acute distress. VITAL SIGNS: Temperature 36.6, pulse 61, respirations 18, blood pressure 118/74. SKIN: Without rash or lesion. HEENT: Oral mucosa without erythema or ulceration. NECK: Supple. HEART: Regular rate and rhythm. LUNGS: Clear to auscultation bilaterally. ABDOMEN: Soft, nontender, nondistended. EXTREMITIES: No clubbing, cyanosis or edema. LABORATORY DATA: WBC count 10,390, hemoglobin 8.9, platelet count 922,000. Chemistries otherwise unremarkable. IMPRESSION: 1. Iron deficiency anemia. 2. Gastrointestinal bleeding. 3. Reactive thrombocytosis. PLAN: Adalgisa was seen and examined at the bedside today. Clinically, doing a bit better. He was seen by Dr. Millan and will be followed as outpatient for possible hemorrhoidectomy. From a hematologic standpoint, as long as he is admitted, continue the daily doses of iron sucrose. I will make arrangements to have him follow up at [facility] as outpatient until his anemia has completely resolved. I have nothing further to add today. Thank you for allowing me to participate in his care.
[2016-12-30 16:20] VITALS: BP 122/74; PULSE 57; TEMP 36.6; O2SAT 100
--- NOTE | 2016-12-30 23:09 | Progress Note ---
Subjective Date of Service: Dec 30, 2016. Subjective Pt evaluation today including: conversation w/ patient, physical exam, chart review, lab review, review of studies (CT abd/pelvis), conversation w/ testing consultant (heme/onc), review of inpatient medication list Pain: hemorrhoids, but improving PO Intake: tolerating regular diet Voiding: no voiding problems no events overnight no bright red bleeding per rectum no melena rectal pain continues but modestly better than yesterday Review of Systems Constitutional: No fever Respiratory: No dyspnea on exertion, No shortness of breath Cardiac: No chest pain, No palpitations Abdomen: No nausea, No pain, No vomiting Objective Vital Signs Date Time Temp Pulse Resp B/P Pulse Ox O2 Delivery O2 Flow Rate FiO2 12/30/16 20:00 Room Air 12/30/16 16:20 36.6 57 18 122/74 100 Room Air 12/30/16 16:00 Room Air 12/30/16 08:01 36.6 61 18 118/74 100 Room Air 12/30/16 08:00 Room Air 12/30/16 00:11 37.2 60 18 124/73 99 Room Air 12/30/16 00:00 98 Room Air Physical Exam General Appearance: no apparent distress ENT: pharynx normal Neck: no JVD Respiratory/Chest: lungs clear, no respiratory distress, no accessory muscle use Cardiovascular: regular rate, rhythm, no gallop, no murmur Abdomen: normal bowel sounds, non tender, soft, no organomegaly Extremities: no pedal edema Neurologic/Psychiatric: alert, oriented x 3 Laboratory Results Last 24 Hours Test 12/30/16 06:38 12/30/16 10:05 White Blood Count 10.39 K/uL Red Blood Count 4.65 M/uL Hemoglobin 8.9 g/dL Hematocrit 30.5 % Mean Corpuscular Volume 65.6 fL Mean Corpuscular Hemoglobin 19.1 pg Mean Corpuscular Hemoglobin Concent 29.2 g/dl Platelet Count 922 K/uL Mean Platelet Volume 10.7 fL Neutrophils (%) (Auto) 66.9 % Lymphocytes (%) (Auto) 20.3 % Monocytes (%) (Auto) 9.8 % Eosinophils (%) (Auto) 1.0 % Basophils (%) (Auto) 1.8 % Neutrophils # (Auto) 6.95 K/uL Lymphocytes # (Auto) 2.11 K/uL Monocytes # (Auto) 1.02 K/uL Eosinophils # (Auto) 0.10 K/uL Basophils # (Auto) 0.19 K/uL RDW Standard Deviation 57.2 fL RDW Coefficient of Variation 25.0 % Immature Granulocyte % (Auto) 0.2 % Immature Granulocyte # (Auto) 0.02 K/uL Nucleated RBC Absolute Count (auto) 0.02 K/uL Nucleated Red Blood Cells % 0.2 % Giant Platelets 1+ Anisocytosis PRESENT Microcytosis PRESENT Ovalocytes 1+ Assessment and Plan 36yo male: 1. chronic blood loss anemia - 2nd to esophageal ulcer +/- hemorrhoids ( although he did not report BRBPR) +/- other source. s/p PRBCs this admission w/ improved H/H. CBC today relatively stable but small drop overnight. Repeat CBC in am for stability. CT abd/pelvis without any specific source for his bleeding. Celiac panel sent. Outpatient capsule endoscopy is being considered. 2. severe iron def anemia - appreciate heme/onc consultation. They will continue daily IV iron replacement while he is here. 3. severe hemorrhoids - anusol suppos q6h, anusol cream q6h, and xylocaine jelly q6h. Gen surg consultation appreciated; plan is for outpatient hemorrhoidectomy. Hemorrhoid pain is improving with above meds. 4. dyspnea - 2nd to severe anemia. Resolved. 5. esophageal ulcer - protonix 40mg PO BID. 6. FEN - advance diet as tolerated; BMP normal. 7. DVT proph - SCDs only at this time. 8. asthma - stable, no symptoms. 9. thrombocytosis - 2nd to #2 - should improved with repletion of low iron stores. 10. restless legs - 2nd to iron def - replete Fe, consider mirapex if desired by patient. 11. sclerotic lesion, pelvis, as seen incidentally on CT - recommend f/u imaging as outpatient. anticipate d/c back to care home tomorrow on Saturday Discharge planning: other (care home)
[2016-12-30 23:45] VITALS: BP 115/71; PULSE 71; TEMP 36.9; O2SAT 98
[2016-12-31 05:57] LABS: BASO % 1.7 %; BASO ABS # 0.18 K/uL (0-0.2); EOS % 2.5 %; HEMATOCRIT 30.6 % (42-52); IG% 0.2 %; LYMPH % 13.8 %; LYMPH ABS # 1.43 K/uL (1.2-3.4); MEAN CELL VOLUME 66.2 fL (80-100); MEAN CORPUSCULAR HEMOGLOBIN 19.3 pg (25-34); MEAN CORPUSCULAR HGB CONC 29.1 g/dl (32-36); MEAN PLATELET VOLUME 10.6 fL (7.4-10.4); MONO % 8.7 %; NEUT % 73.1 %; PLATELET COUNT 843 K/uL (130-400); RED BLOOD COUNT 4.62 M/uL (4.7-6.1); WHITE BLOOD COUNT 10.35 K/uL (4.8-10.8)
[2016-12-31] MEDS: HYDROCORTISONE ACETATE 25 MG SUPP PR SCH ×2 (06:00→11:44)
[2016-12-31] MEDS: LIDOCAINE HCL 5% OINT 30 GM TUBE EXT SCH ×2 (06:00→11:43)
[2016-12-31] MEDS: HYDROCORTISONE HC 2.5% CRM 30GM TUBE EXT SCH ×2 (06:12→11:43)
[2016-12-31 06:39] LABS: COMPLETE YES; HYPOCHROMIA PRESENT; LARGE PLATELETS 1+; OVALOCYTES 1+; POLYCHROMASIA 1+
[2016-12-31 07:37] VITALS: BP 116/71; PULSE 65; TEMP 36.5; O2SAT 100
--- NOTE | 2016-12-31 08:35 | Anesthesiology Progress Note ---
Anesthesia Post Op Note Date & Time Dec 31, 2016 at 08:35 Vital Signs Pain Intensity: 7.0 Vital Signs Past 12 Hours Date Time Temp Pulse Resp B/P Pulse Ox O2 Delivery O2 Flow Rate FiO2 12/31/16 07:37 36.5 65 18 116/71 100 Room Air 12/31/16 00:00 Room Air 12/30/16 23:45 36.9 71 18 115/71 98 Room Air Notes Mental Status: alert / awake / arousable, participated in evaluation Pt Amnestic to Procedure: Yes Nausea / Vomiting: adequately controlled Pain: adequately controlled Airway Patency, RR, SpO2: stable & adequate BP & HR: stable & adequate Hydration State: stable & adequate Anesthetic Complications: no major complications apparent
[2016-12-31] MEDS: PANTOprazole SOD 40 MG TAB PO SCH (08:47)
[2016-12-31] MEDS: ACETAMINOPHEN 325 MG TAB PO PRN (08:55)
[2016-12-31] MEDS: IRON SUCROSE INJ 100 MG in SODIUM CHLORIDE 0.9% 100ML 100 ML IV SCH (09:31)
[2016-12-31 09:41] VITALS: BP 114/69; PULSE 64; TEMP 36.8; O2SAT 100
--- NOTE | 2016-12-31 09:47 | Gastroenterology Progress Note ---
Progress Note Date of Service: Dec 31, 2016 Subjective Pt evaluation today including: conversation w/ patient, physical exam, lab review, review of inpatient medication list Patient reports mild rectal discomfort that he describes as a burning sensation. Tolerating diet, no nausea or vomiting or abdominal pain. H&H stable over the past 24 hours. Continues Protonix BID and was seen by general surgery for evaluation of hemorrhoids seen on colonoscopy over the weekend. Plans for outpatient hemorrhoidectomy. Dr. Zuluaga did order a CT a/p yesterday which did not reveal and small bowel abnormalities. Celiac profile is negative. Consideration has been given to outpatient capsule endoscopy. Review of Systems Constitutional: No chills, No fever Respiratory: No problem reported Cardiac: No problem reported Abdomen: + see HPI Psych: No problem reported Medications Current Inpatient Medications Medications (Trade) Dose Ordered Sig/Delmy Route Start Time Stop Time Status Last Admin Dose Admin Acetaminophen (Tylenol Tab) 650 mg Q4H PRN PO 12/28/16 13:45 01/27/17 13:44 12/31/16 08:55 650 MG Ondansetron HCl (Zofran Inj) 4 mg Q6H PRN IV 12/28/16 13:45 01/27/17 13:44 Albuterol/ Ipratropium (Duoneb) 3 ml Q4 PRN INH 12/28/16 14:30 01/27/17 14:29 Hydrocortisone Acetate (Anusol Hc Supp) 25 mg Q6H ID 12/29/16 12:00 01/28/17 11:59 12/30/16 23:37 25 MG Hydrocortisone (Proctozone Hc 2.5% Crm) 1 appln Q6H EXT 12/29/16 11:00 01/28/17 10:59 12/30/16 23:36 1 APPLN Pantoprazole Sodium 40 mg 40 mg BID PO 12/29/16 20:00 01/28/17 20:59 12/31/16 08:47 40 MG Iron Sucrose/ Sodium Chloride (Venofer Inj/Nss 100ml) 105 ml @ 420 mls/hr DAILY@1000 IV 12/30/16 10:00 01/03/17 10:14 12/30/16 09:52 420 MLS/HR Lidocaine HCl (Xylocaine Oint 5%) 1 appln Q6 EXT 12/29/16 18:00 01/28/17 17:59 12/30/16 23:37 1 APPLN Objective Vital Signs Date Time Temp Pulse Resp B/P Pulse Ox O2 Delivery O2 Flow Rate FiO2 12/31/16 08:50 Room Air 12/31/16 07:37 36.5 65 18 116/71 100 Room Air 12/31/16 00:00 Room Air 12/30/16 23:45 36.9 71 18 115/71 98 Room Air 12/30/16 20:00 Room Air 12/30/16 16:20 36.6 57 18 122/74 100 Room Air 12/30/16 16:00 Room Air Physical Exam General Appearance: WD/WN, no apparent distress Eyes: EOMI ENT: hearing grossly normal Neck: supple Respiratory/Chest: lungs clear, normal breath sounds, no respiratory distress Cardiovascular: regular rate, rhythm, no gallop, no murmur Abdomen: normal bowel sounds, non tender, soft Extremities: no pedal edema Neurologic/Psych: alert, normal mood/affect, oriented x 3 Laboratory Results Last 24 Hours Test 12/30/16 10:05 12/31/16 05:22 White Blood Count 10.35 K/uL Red Blood Count 4.62 M/uL Hemoglobin 8.9 g/dL Hematocrit 30.6 % Mean Corpuscular Volume 66.2 fL Mean Corpuscular Hemoglobin 19.3 pg Mean Corpuscular Hemoglobin Concent 29.1 g/dl Platelet Count 843 K/uL Mean Platelet Volume 10.6 fL Neutrophils (%) (Auto) 73.1 % Lymphocytes (%) (Auto) 13.8 % Monocytes (%) (Auto) 8.7 % Eosinophils (%) (Auto) 2.5 % Basophils (%) (Auto) 1.7 % Neutrophils # (Auto) 7.56 K/uL Lymphocytes # (Auto) 1.43 K/uL Monocytes # (Auto) 0.90 K/uL Eosinophils # (Auto) 0.26 K/uL Basophils # (Auto) 0.18 K/uL RDW Standard Deviation 58.4 fL RDW Coefficient of Variation 25.3 % Immature Granulocyte % (Auto) 0.2 % Immature Granulocyte # (Auto) 0.02 K/uL Large Platelets 1+ Polychromasia 1+ Hypochromasia PRESENT Ovalocytes 1+ Assessment and Plan Patient is a 36 year old male with symptomatic profound anemia of 7.2/27.9, several weeks of melena, heme positive stools with findings of esophageal ulcer and hemorrhoids. 1. Await Celiac profile as ordered. 2. Ongoing iron therapy per hematology. 3. Could consider outpatient capsule endoscopy through [facility]. 4. Continue Protonix 40 mg po BID. 5. Supportive care per primary care. Agree with NANCY Chacon as above Abd: Soft, NT, ND, +BS Continue supportive care Iron therapy to continue
[2016-12-31 10:08] VITALS: BP 109/63; PULSE 61; TEMP 36.8; O2SAT 100
[2016-12-31] MEDS ORDERED: FRRS300 PO (12:09)
[2016-12-31] MEDS ORDERED: ANSHCCR EXT (12:09)
[2016-12-31] MEDS ORDERED: XYLO EXT (12:09)
[2016-12-31] MEDS ORDERED: ANSHCS PR (12:09)
[2016-12-31] MEDS ORDERED: PRT40 PO (12:09)
--- NOTE | 2016-12-31 12:15 | Discharge Instructions ---
Discharge Instructions Date of Service Dec 31, 2016. Admission Reason for Admission: Gi Bleed Discharge Discharge Diagnosis / Problem: Esophageal ulcer, hemorrhoids, blood loss anemia , iron deficient Discharge Goals Goal(s): Improve function, Diagnostic testing (capsule endoscopy), Therapeutic intervention (general surgery for hemorrhoidectomy) Activity Recommendations Activity Limitations: resume your previous activity Lifting Limitations: none Exercise/Sports Limitations: as tolerated Shower/Bathe: no limitations . Instructions / Follow-Up Instructions / Follow-Up Medications: - PROTONIX: take 40mg twice a day for 6 weeks then can reduce to 40mg daily - FERROUS SULFATE: take twice a day indefinitely, can get follow up ferritin and iron levels in a few months - HYDROCORTISONE: cream and suppository, use to treat hemorrhoids until he can be seen by surgery in a few weeks - LIDOCAINE: ointment for hemorrhoids to use as needed - COLACE: take twice a day with full glass of water to help keep stools soft GI bleed: EGD showed a bleeding esophageal ulcer, no further bleeding, no signs of bleeding on colonoscopy although it did show hemorrhoids continue Protonix BID for treatment of ulcer consider repeat CBC in a week to check on blood counts Hemorrhoids: can follow up with general surgery in a few weeks for hemorrhoidectomy or band ligation continue to use Hydrocortisone and Licocaine topically for symptoms Anemia, iron deficiency: continue Ferrous sulfate twice a day, check iron levels in a few months, recommend Colace, hydration, fiber supplement if needed to prevent constipation and straining with his hemorrhoids FOLLOW UP - Dr. Millan (general surgery) in a few weeks for possible anoscope and band ligation of hemorrhoids, - [facility] in a few weeks for capsule endoscopy, - physician at senior living facility this [facility] Current Hospital Diet Patient's current hospital diet: AHA Diet (Heart Healthy) Discharge Diet Recommended Diet: AHA Diet (Heart Healthy) Procedures Procedures Performed: Colonoscopy EGD - Bleeding esophageal ulcer. Pending Studies Studies pending at discharge: no Laboratory Results Hemoglobin A1c Test 12/28/16 14:04 Range/Units Estimated Average Glucose 120 mg/dl Hemoglobin A1c 5.8 H 4.5-5.6 % Medical Emergencies . Who to Call and When: Medical Emergencies: If at any time you feel your situation is an emergency, please call 911 immediately. . Non-Emergent Contact Non-Emergency issues call your: Primary Care Provider Call Non-Emergent contact if: you have a fever, your pain is worsening, you have any medication questions . . "Provider Documentation" section prepared by Ryan Kapoor. VTE Core Measure Inpt VTE Proph given/why not?: Florentino Stockings, SCD's, Contraindicated [place] Drug Monitoring Program Search Results: no issues identified
[2016-12-31] MEDS ORDERED: DOCU-94 PO (12:22)
[2016-12-31 14:29] VITALS: BP 109/63; PULSE 61; TEMP 36.8; O2SAT 100
[2017-01-02 02:24] LABS: GLIADIN DEAMIDATED IgA AB 11 UNITS (<20); GLIADIN DEAMIDATED IgG AB 20 UNITS (<20); RETICULIN IgA AB Negative (Negative)
--- NOTE | 2017-01-02 07:58 | Discharge Summary ---
Discharge Summary Date of Service Jan 02, 2017. Discharge Summary Admission Date: Dec 28, 2016 at 13:05 Discharge Date: Dec 31, 2016 Discharge Disposition: Home ([facility]) Principal Diagnosis: GI bleed Problems/Secondary Diagnoses: Acute blood loss anemia Esophageal ulcer Hemorrhoids Iron deficiency Procedures: EGD - bleeding esophageal ulcer Colonoscopy - internal hemorrhoids Consultations: Gastroenterology General surgery Medication Reconciliation New Medications: Docusate Sodium (Colace) 100 Mg Cap 1 CAP PO BID for 30 Days, #60 CAP 2 Refills Ferrous Sulfate (Ferrous Sulfate) 325 Mg Tab 1 TAB PO BID for 30 Days, #60 TABS 3 Refills Hydrocortisone (Proctosol Hc) 90 Appln/30 Gm Cr 1 APPLN EXT Q6H, #1 TUBE 3 Refills Hydrocortisone Acetate (Anucort-Hc) 25 Mg Supp 25 MG MA Q6H, #10 SUPP 2 Refills Lidocaine HCl (Lidocaine) 90 Appln/30 Gm Oint 1 APPLN EXT Q6, #1 TUBE 3 Refills Pantoprazole (Pantoprazole Sodium) 40 Mg Tab 40 MG PO BID, #60 TAB 3 Refills Discharge Exam Patient doing well on day of discharge, eating well, moving bowels, no blood or melena reported. Hb stable and vitals normal. Deemed safe for discharge with plans to follow up with general surgery to discuss hemorrhoidectomy as well as GI to discuss capsule endoscopy. Review of Systems: Constitutional: No chills, No fatigue, No fever, No problem reported, No sweats, No weakness, No weight loss Eyes: No diplopia, No discharge, No eye pain, No problem reported, No redness, No worsening of vision ENT: No dental problems, No hearing loss, No nasal symptoms, No problem reported, No sore throat, No tinnitus, No trouble swallowing, No unusual epistaxis Respiratory: No cough, No dyspnea at rest, No dyspnea on exertion, No hemoptysis, No problem reported, No shortness of breath, No sputum, No wheezing Cardiovascular: No PND, No chest pain, No claudication, No edema, No orthopnea, No palpitations, No problem reported Abdomen: No GI bleeding, No constipation, No diarrhea, No nausea, No pain, No problem reported, No vomiting Musculoskeletal: No calf pain, No joint pain, No muscle pain, No problem reported, No swelling Genitourinary - Male: No dysuria, No hematuria, No urinary frequency, No urinary urgency Neurologic: No balance problems, No memory loss, No numbness/tingling, No paralysis, No problem reported, No vertigo, No weakness Psychiatric: No anhedonism, No anxiety, No depression symptoms, No insomnia , No problem reported, No substance abuse Endocrine: No excessive thirst, No excessive urination, No fatigue, No problem reported Hematologic / Lymphatic: No abnormal bleeding/bruising, No clotting problems , No night sweats, No problem reported, No swollen lymph nodes Integumentary: No bleeding, No color change, No itch, No new/changing skin lesions, No problem reported, No rash Physical Exam: General Appearance: WD/WN, no apparent distress Eyes: normal inspection, EOMI, sclerae normal ENT: normal ENT inspection, hearing grossly normal, pharynx normal Neck: supple, no adenopathy, no JVD, trachea midline Respiratory/Chest: chest non-tender, lungs clear, normal breath sounds, no respiratory distress, no accessory muscle use Cardiovascular: regular rate, rhythm, no edema, no gallop, no JVD, no murmur , normal peripheral pulses Abdomen / GI: normal bowel sounds, non tender, soft, no organomegaly Extremities: normal inspection, no calf tenderness, normal capillary refill , no pedal edema, normal range of motion, pelvis stable Neurologic/Psychiatric: 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 Work up included an EGD that showed an esophageal ulcer with some bleeding. Treated with Protonix. Also had a colonoscopy that showed internal hemorrhoids that were quite painful and required topical treatment. Received 2 units PRBC in the beginning of admission, Hb stable. Plan to follow up with general surgery for definitive treatment of hemorrhoids and GI for possible capsule endoscopy. 1. chronic blood loss anemia - 2nd to esophageal ulcer +/- hemorrhoids ( although he did not report BRBPR) +/- other source. s/p 2 units PRBCs this admission w/ improved H/H, has been stable for days CT abd/pelvis without any specific source for his bleeding. Celiac panel sent IgG Gliadin positive at > 20 so may have celiac, needs to follow up with GI, [facility] capsule endoscopy is being considered. 2. severe iron def anemia - appreciate heme/onc consultation received IV Iron supplementation while admitted on discharge with treat with Ferrous Sulfate 325mg BID stay well hydrated, Colace and fiber to prevent constipation and straining in setting of hemorrhoids 3. severe hemorrhoids - anusol suppos q6h, anusol cream q6h, and xylocaine jelly q6h. continue all of these on discharge Gen surg consultation appreciated; plan is for outpatient anoscope and possible banding of hemorrhoids follow up Dr. Millan in a few weeks Hemorrhoid pain is improving with above meds. 4. dyspnea - 2nd to severe anemia. Resolved. 5. esophageal ulcer - protonix 40mg PO BID. continue for 6 weeks, can decrease to once daily after that 6. FEN - advance diet as tolerated; BMP normal. 7. DVT proph - SCDs only at this time. 8. asthma - stable, no symptoms. 9. thrombocytosis - 2nd to #2 - should improved with repletion of low iron stores. 10. restless legs - 2nd to iron def - replete Fe, consider mirapex if desired by patient. 11. sclerotic lesion, pelvis, as seen incidentally on CT - recommend f/u imaging as outpatient. Total Time Spent: Greater than 30 minutes This includes examination of the patient, discharge planning, medication reconciliation, and communication with other providers. Discharge Instructions Please refer to the electronic Patient Visit Report (Discharge Instructions) for additional information. Follow-Up physician at [facility] this week [facility] in a few weeks, need to follow up Celiac panel results and possible capsule endoscopy Dr Millan, surgery, in a few weeks for hemorrhoid treatment Additional Copies To Doug Zuluaga, ; Reynaldo Millan M.D.; [facility]
== END 2016-12-31 18:10 | DRG 393 ==
LOC: ENRESERVDT → ENRESERVTM → C.2T 13:05 → C.MS4W 12-29 18:47
PROVIDERS: ADMIT Internal Medicine; ATTEND Internal Medicine
PROC: 0DJ08ZZ Inspection of Upper Intestinal Tract, Via Natural or Artificial Opening Endoscopic (ICD-10-PCS; principal; 2016-12-28 14:51)
PROC: 0DJD8ZZ Inspection of Lower Intestinal Tract, Via Natural or Artificial Opening Endoscopic (ICD-10-PCS; 2016-12-29)
DX: K64.8 Other hemorrhoids (principal); K22.11 Ulcer of esophagus with bleeding; K62.5 Hemorrhage of anus and rectum; D50.0 Iron deficiency anemia secondary to blood loss (chronic); K64.4 Residual hemorrhoidal skin tags; J45.909 Unspecified asthma, uncomplicated; Z83.3 Family history of diabetes mellitus; Z87.891 Personal history of nicotine dependence; Z80.0 Family history of malignant neoplasm of digestive organs; D47.3 Essential (hemorrhagic) thrombocythemia; G25.81 Restless legs syndrome